=== PATIENT | female | born 1965 | race Caucasian/White ===

== ENCOUNTER 2018-07-18 16:00 | Emergency (ER) ==
[2018-07-18 18:44] VITALS: BP 151/96; TEMP 97; BMI 35.0
--- NOTE | 2018-07-18 21:19 | ED.PDOC ---
General ED Provider: Dr. KARLIE LY-ER Chief Complaint: Abdominal Pain Stated Complaint: i raised up further than i should have aNd felt pain in my chest wall Time Seen by Physician: 19:00 Mode of Arrival: Walk-In Information Source: Patient Exam Limitations: No limitations Nursing and Triage Documentation Reviewed and Agree: Yes Does patient meet sepsis criteria?: No System Inflammatory Response Syndrome: Not Applicable Sepsis Protocol: For patient's 13 years and over: Temp is 96.8 and below OR 101 and greater Pulse >90 BPM Resp >20/minute Acutely Altered Mental Status Are patient's symptoms suggestive of a new infection, such as: -Pneumonia -Skin, Soft Tissue -Endocarditis -UTI -Bone, Joint Infection -Implantable Device -Acute Abdominal Infection -Wound Infection -Meningitis -Blood Stream Catheter Infection -Unknown Miscellaneous Complaint Exam - Complex/Multi-System Complaint/Exam Onset/Duration: today Symptoms Are: Still present Initial Severity: Mild Current Severity: Mild Location of Pain: right lateral chest wall Associated Signs and Symptoms: Denies: Decreased responsiveness, Confusion, Agitation, Dizziness, Weakness, Syncope, Headache, Short of air, Cough, Wheezing , Hemoptysis, Chest pain, Palpitations, Edema, Nausea, Vomiting, Diarrhea, Abdominal pain, Back pain, Dysuria, Hematemesis, Melena, Decreased oral intake, Fever, Diaphoresis, Immunocompromised, Anticoagulation Therapy, Recent medication changes, Indwelling senior medical transcriptionist, Prior MRSA, Prior VRE, Recent trauma, Remote trauma Recent Echo/LV Function: No JVD Present: No Tachypnea Present: No Stridor Present: No Abdominal Findings: Present: Normal findings Glascow Coma Scale (see protocol): 15 Meningeal Signs Positive: No Focal Weakness: Present: None Gait: Normal Gag Reflex Present: Yes Babinski Sign: Negative Right, Negative Left Skin Findings: Present: Normal findings Joint Swelling Present: No In-Dwelling Device Present: No Quality Indicator For Non-Traumatic Chest Pain/Syncope: EKG Performed Review of Systems - Review Of Systems Constitutional: Reports: No symptoms Eyes: Reports: No symptoms Ears, Nose, Mouth, Throat: Reports: No symptoms Respiratory: Reports: No symptoms Cardiac: Reports: Chest pain GI: Reports: No symptoms : Reports: No symptoms Musculoskeletal: Reports: No symptoms Skin: Reports: No symptoms Neurological: Reports: No symptoms Endocrine: Reports: No symptoms Hematologic/Lymphatic: Reports: No symptoms All Other Systems: Reviewed and Negative Past Medical History - Past Medical History Previously Healthy: No Endocrine: Reports: Unknown Cardiovascular: Reports: Unknown Respiratory: Reports: Unknown Hematological: Reports: Unknown Gastrointestinal: Reports: Unknown Genitourinary: Reports: Unknown Neuro/Psych: Reports: Unknown Musculoskeletal: Reports: Unknown Cancer: Reports: Unknown Last Menstrual Period: unknown - Surgical History General Surgical History: Reports: Unknown - Family History Family History: Reports: Unknown - Social History Smoking Status: Never smoker Hx Substance Use: No Alcohol Screening: None Physical Exam - Physical Exam Appearance: Well-appearing Pain Distress: Mild Eyes: CRISTIN, EOMI, Conjunctiva clear ENT: Ears normal, Nose normal, Oropharynx normal Neck: Supple Respiratory: Airway patent, Breath sounds clear, Breath sounds equal, Respirations nonlabored Cardiovascular: RRR, Pulses normal, No rub, No murmur GI/: Soft Musculoskeletal: Limited ROM Skin: Warm, Dry, Normal color Neurological: Sensation intact, Motor intact, Reflexes intact, Cranial nerves intact, Alert, Oriented Psychiatric: Affect appropriate, Mood appropriate Interpretation - Radiology Interpretation Radiology Interpretation By: Radiologist Radiology Results: Positive - EKG Interpretation Time of EKG #1: 21:57 Rate: Normal Rhythm: Sinus Ectopy: None Freeman: NL ST Segment: Normal Interpretation: nsr Re-Evaluation - Re-Evaluation Time of Re-Evaluation: 21:57 Status: Improved Vital Signs Stable: Yes Pain Level: 1 Appearance: NAD Lungs: Clear Skin: Warm and Dry Neuro: Alert and Oriented X3 CV: RRR Critical Care Note - Critical Care Note Total Time (mins): 0 Course - Course Hematology/Chemistry: 07/18/18 20:35 07/18/18 20:35 Orders, Labs, Meds: Lab Review 07/18/18 07/18/18 07/18/18 20:35 20:35 20:35 WBC 5.15 RBC 4.39 Hgb 11.7 L Hct 35.8 L MCV 81.5 MCH 26.7 L MCHC 32.7 RDW Coeff of Oliverio 13.6 Plt Count 199 Immature Gran % (Auto) 0.2 Neut % (Auto) 70.8 Lymph % (Auto) 16.5 Webster % (Auto) 7.6 Eos % (Auto) 3.7 Baso % (Auto) 1.2 Immature Gran # (Auto) 0.0 Neut # (Auto) 3.7 Lymph # (Auto) 0.9 Webster # (Auto) 0.4 Eos # (Auto) 0.2 Baso # (Auto) 0.1 D-Dimer (Manual) 573.87 Sodium 135.4 L Potassium 4.09 Chloride 102.9 Carbon Dioxide 28.7 Anion Gap 7.89 BUN 12.8 Creatinine 0.84 Estimated GFR (MDRD) 71.00 BUN/Creatinine Ratio 15.23 Glucose 117.0 H Calcium 9.60 Total Bilirubin 0.39 AST 41.2 H ALT 41.9 H Alkaline Phosphatase 130.3 H Total Creatine Kinase 32.6 Troponin I < 0.012 Total Protein 7.76 Albumin 4.27 Globulin 3.49 Albumin/Globulin Ratio 1.22 Amylase 57.6 Lipase 24.3 Orders Category Date Time Status EKG-(ED ONLY) Stat CARDIO 07/18/18 20:27 Completed AMYLASE Stat LAB 07/18/18 20:35 Completed CBC W/ AUTO DIFF Stat LAB 07/18/18 20:35 Completed COMPREHENSIVE METABOLIC PANEL Stat LAB 07/18/18 20:35 Completed CREATINE KINASE Stat LAB 07/18/18 20:35 Completed D-DIMER Stat LAB 07/18/18 20:35 Completed LIPASE Stat LAB 07/18/18 20:35 Completed TROPONIN I Stat LAB 07/18/18 20:[address] ABDOMEN/PELVIS WO CONTRAST Stat RADS 07/18/18 20:[address] CHEST W/O CONTRAST Stat RADS 07/18/18 20:27 Completed Vital Signs: Temp Pulse Resp BP Pulse Ox 07/18/18 18:29 97.0 F L 101 H 20 151/96 H 98 Departure - Departure Time of Disposition: 21:57 Disposition: HOME SELF-CARE Discharge Problem: Chest wall pain Instructions: Chest Wall Pain (ED) Condition: Good Pt referred to PMD for follow-up: Yes IPMP verified?: No Additional Instructions: take your pain meds at [facility]--f/u with pcp abnormal labs Allergies/Adverse Reactions: Allergies cefixime [From Suprax] Adverse Reaction (Verified 07/18/18 19:18) clarithromycin [From Biaxin] Adverse Reaction (Verified 07/18/18 19:18) cortisone Adverse Reaction (Verified 07/18/18 19:18) erythromycin base [From E-Mycin] Adverse Reaction (Verified 07/18/18 19:18) iodine Adverse Reaction (Verified 07/18/18 19:18) Sulfa (Sulfonamide Antibiotics) Adverse Reaction (Verified 07/18/18 19:18) Home Medications: Ambulatory Orders Cyclobenzaprine HCl [Flexeril] 5 mg PO TID 07/18/18 Duloxetine HCl [Cymbalta] 60 mg PO DAILY 07/18/18 Fentanyl 12 Mcg/Hr [Duragesic 12 Mcg/Hr] 1 patch TD Q72HR 07/18/18 Gabapentin [Neurontin] 300 mg PO TID 07/18/18 Ivabradine HCl [Corlanor] 5 mg PO BID 07/18/18 Meloxicam [Mobic] 7.5 mg PO DAILY 07/18/18 Tramadol HCl [Ultram] 100 mg PO Q6H PRN 07/18/18 Disposition Discussed With: Patient, Family
--- NOTE | 2018-07-18 21:46 | CT ---
EXAM: CT chest without intravenous contrast 07/18/2018. Sagittal and coronal reformatted images obt ained HISTORY: Right chest wall pain COMPARISON: None. FINDINGS: The heart size appears within normal limits. No pericardial effusion. Ojscjibu-yj-uvrof hiatal hernia. Left chest port appears well positioned. Multifocal atelectasis. Patchy ground-glass within the posterior aspect of left lung. This is best seen on image 18. This could represent pulmonary contusion. There is no pleural effusion or pneumothorax. Edema is present along the right anterior chest wall. No underlying rib fracture identified. Surgic al clips of the right axilla. No acute fracture identified. IMPRESSION: 1. Multifocal atelectasis with possible pulmonary contusion. 2. Kqleaydi-dr-auptm hiatal hernia. 3. Left chest port well positioned. 4. Edema along the right anterior chest wall. No underlying fracture identified.
--- NOTE | 2018-07-18 21:53 | CT ---
EXAM: CT abdomen pelvis without contrast HISTORY: Right upper quadrant pain COMPARISON: None TECHNIQUE: CT abdomen pelvis performed without intravenous contrast. Coronal and sagittal reformatt ed images obtained. FINDINGS: Please refer to separate port CT chest regarding findings in the lower chest. No free air . No acute abnormalities of the bones. Spinal stimulator. Degenerative change in the spine. Evalu ation organ parenchyma limited without contrast. Liver with granulomatous calcification otherwise un remarkable. Patient status post cholecystectomy. Pancreas with fatty atrophy. Granulomatous calcif ication in the spleen. Spleen otherwise unremarkable. Adrenals unremarkable. No hydronephrosis or nephrolithiasis. No calculi visualized in normal course of the ureters. Bladder unremarkable. Uter us unremarkable. Aorta normal in caliber. There is posterior subcutaneous edema. Moderate hiatal h ernia. No dilated loops small bowel. There is prominent caliber of the appendix at 9 mm without ass ociated inflammation. There is a small fat containing supraumbilical hernia. There is a small fat- containing periumbilical hernia. No inflammatory stranding identified in the abdomen pelvis. IMPRESSION: 1. Prominent caliber of the appendix without associated inflammation. A negative exam for appendici tis is favored. Recommend clinical correlation and follow-up as warranted. 2. Moderate hiatal hernia 3. Areas of increased submucosal fat deposition in the colon, a finding be seen in sequela of remote infection or inflammation. 4. Status post cholecystectomy
== END 2018-07-18 22:05 | disposition home or self-care (01) ==
LOC: ED 18:24
DX: R07.89 Other chest pain (principal); R10.9 Unspecified abdominal pain; Z79.899 Other long term (current) drug therapy
CPT/HCPCS: 36415; 80053; 82150; 82550; 83690; 84484; 85025; 85379; 93005; 93010; 99283

== ENCOUNTER 2018-10-23 10:50 | Outpatient (CLI) ==
[2018-08-25 07:47] VITALS: BMI 35.0
== END 2018-10-23 10:51 | disposition home or self-care (01) ==
LOC: RHC-LAB 10:50 → FCC-LAB 10:51
PROVIDERS: ATTEND Family Medicine
DX: B35.1 Tinea unguium (principal); N64.59 Other signs and symptoms in breast
CPT/HCPCS: 87101

== ENCOUNTER 2018-10-23 11:02 | Outpatient (CLI) ==
[2018-08-25 07:47] VITALS: BMI 35.0
--- NOTE | 2018-10-23 12:21 | US ---
EXAM: Ultrasound chest wall HISTORY: Palpable area along mastectomy scar for 2 days. FINDINGS: Webb-scale ultrasound and color Doppler imaging was performed in the region of interest de scribed as the right chest wall. Images demonstrated a deep subcutaneous irregular fluid collection located in the general region of t he right axillary tail. This was measured at 3.5 x 1.1 x 4.3 cm. The fluid appears anechoic (simple ) and may represent edema although an early abscess cannot be excluded. If indicated, consider corre lation with enhanced CT. IMPRESSION: 1. Fluid collection found in the region of interest.
== END 2018-10-23 11:03 | disposition home or self-care (01) ==
LOC: RAD 11:02
PROVIDERS: ATTEND Family Medicine
DX: N64.59 Other signs and symptoms in breast (principal)

== ENCOUNTER 2018-11-04 07:34 | Outpatient (CLI) ==
[2018-08-25 07:47] VITALS: BMI 35.0
--- NOTE | 2018-11-04 09:48 | CT ---
Exam: CT chest with intravenous contrast. Comparison: CT performed 07/18/2018. Reason for exam: Abnormal findings on diagnostic exam. FINDINGS: Left-sided Port-A-Cath appears unchanged. 4 mm nodular density in the left apex on axial image number 18. The previously described patchy airs pace opacities in left upper lobe have significantly decreased on today's exam with minimal residual seen on imaging. Similar appearing pleural thickening in the left upper lobe. The mild pleural thic kening/inflammation in the right middle lobe. Patchy airspace opacities are seen in the right lower lobe that are not seen on previous imaging. There is a moderately-sized hiatal hernia. The heart is not enlarged. The aorta is normal in course and caliber. The gallbladder has been removed. There is a small only fat containing ventral hernia as seen on axial image number 62. No suspicious appearing osteoblastic or osteolytic lesions. Impression: 1. Patchy airspace opacities are seen in the left upper and right lower lobes likely inflammation or atypical infection. 2. Scarring changes/minimal pleural based nodularity in the left apex on axial image number 18. 6-m onth follow-up is recommended to document stability / resolution. 3. Pleural thickening in the left apex and right lower lobe likely inflammatory/infectious. Recomme nd attention this region on follow up imaging. 4. Moderately sized hiatal hernia. 5. Fat containing ventral hernia
== END 2018-11-04 07:35 | disposition home or self-care (01) ==
LOC: RAD 07:34
PROVIDERS: ATTEND Family Medicine
DX: R93.89 Abnormal findings on diagnostic imaging of other specified body structures (principal); N64.9 Disorder of breast, unspecified
CPT/HCPCS: 36415; 82565

== ENCOUNTER 2018-12-05 13:45 | Emergency (ER) ==
[2018-12-05 13:54] VITALS: BP 134/84; TEMP 97.6; BMI 34.8
--- NOTE | 2018-12-05 14:21 | ED.PDOC ---
General ED Provider: Dr. LISA PAULINO Chief Complaint: Wound Check Stated Complaint: WOUND CHECK IN A 53 YEARS OLD FEMALE REPORTED OF HER SUTURE COMING OFF LAST NIGHT . SEE PHOTOS Time Seen by Physician: 14:00 (CHRISTINA PRESENT AT ALL TIME . SEE PHOTOS) Mode of Arrival: Walk-In Information Source: Patient Primary Care Provider: SEGUN HOOK Referred to ED by: Other (PROCEDURE WAS FOR A SEABOUS CYST RESECTION , RIGHT SIDE ) Nursing and Triage Documentation Reviewed and Agree: Yes (STATED SHE CAN TAKE KEFLEX ) Does patient meet sepsis criteria?: No System Inflammatory Response Syndrome: Not Applicable (SEE PHOTOS ( R.N. PRESENT AT ALL TIMES)) Sepsis Protocol: For patient's 13 years and over: Temp is 96.8 and below OR 101 and greater Pulse >90 BPM Resp >20/minute Acutely Altered Mental Status Are patient's symptoms suggestive of a new infection, such as: -Pneumonia -Skin, Soft Tissue -Endocarditis -UTI -Bone, Joint Infection -Implantable Device -Acute Abdominal Infection -Wound Infection -Meningitis -Blood Stream Catheter Infection -Unknown Review of Systems - Review Of Systems Constitutional: Reports: No symptoms Eyes: Reports: No symptoms Ears, Nose, Mouth, Throat: Reports: No symptoms Respiratory: Reports: No symptoms Cardiac: Reports: No symptoms GI: Reports: No symptoms : Reports: No symptoms Musculoskeletal: Reports: No symptoms Skin: Reports: Other (WOUND SE NOTED IN THE PHOTOS) Neurological: Reports: No symptoms Endocrine: Reports: No symptoms Hematologic/Lymphatic: Reports: No symptoms All Other Systems: Reviewed and Negative Past Medical History - Past Medical History Previously Healthy: No Endocrine: Reports: Unknown Cardiovascular: Reports: Unknown Respiratory: Reports: Unknown Hematological: Reports: Unknown Gastrointestinal: Reports: Unknown Genitourinary: Reports: Unknown Neuro/Psych: Reports: Unknown Musculoskeletal: Reports: Unknown Cancer: Reports: Unknown Last Menstrual Period: N/A - Surgical History General Surgical History: Reports: Unknown - Family History Family History: Reports: Unknown - Social History Smoking Status: Never smoker Hx Substance Use: No Alcohol Screening: None - Immunizations Tetanus Shot up to Date: Yes Physical Exam - Physical Exam Appearance: Well-appearing, No pain distress, Well-nourished Eyes: CRISTIN, EOMI, Conjunctiva clear ENT: Ears normal, Nose normal, Oropharynx normal Respiratory: Airway patent, Breath sounds clear, Breath sounds equal, Respirations nonlabored Cardiovascular: RRR, Pulses normal, No rub, No murmur GI/: Soft, Nontender, No masses, Bowel sounds normal, No Organomegaly Musculoskeletal: Normal strength, ROM intact, No edema, No calf tenderness Skin: Warm, Dry (1CMX 0.5 CL WOUND RIGHT AXILLA SEE PHOTOS) Neurological: Sensation intact, Motor intact, Reflexes intact, Cranial nerves intact, Alert, Oriented Psychiatric: Affect appropriate, Mood appropriate Critical Care Note - Critical Care Note Total Time (mins): 0 Course - Course Vital Signs: Temp Pulse Resp BP Pulse Ox 12/05/18 13:46 97.6 F 117 H 20 134/84 96 Departure - Departure Time of Disposition: 14:22 Disposition: HOME SELF-CARE Discharge Problem: Wound, Wound of axillary region Instructions: Acute Wound Care (ED), Care For Your Stitches (ED), Care For Your Stitches (DC) Condition: Good Pt referred to PMD for follow-up: Yes IPMP verified?: No Additional Instructions: Please call your Family Physician as soon as possible to schedule a follow-up appointment. Allergies/Adverse Reactions: Allergies latex Allergy (Unverified 08/20/18 10:33) mold Allergy (Verified 12/05/18 13:56) pneumococcal vaccine Adverse Reaction (Intermediate, Verified 12/05/18 13:56) swelling and rash sulfamethoxazole [From Bactrim] Adverse Reaction (Mild, Verified 12/05/18 13:56) rash trimethoprim [From Bactrim] Adverse Reaction (Mild, Verified 12/05/18 13:56) rash cefixime [From Suprax] Adverse Reaction (Verified 12/05/18 13:56) clarithromycin [From Biaxin] Adverse Reaction (Verified 12/05/18 13:56) cortisone Adverse Reaction (Verified 12/05/18 13:56) erythromycin base [From E-Mycin] Adverse Reaction (Verified 12/05/18 13:56) iodine Adverse Reaction (Verified 12/05/18 13:56) Sulfa (Sulfonamide Antibiotics) Adverse Reaction (Verified 12/05/18 13:56) sulfa drugs Adverse Reaction (Mild, Uncoded 08/20/18 10:33) Rash Home Medications: Ambulatory Orders Cyclobenzaprine HCl [Flexeril] 5 mg PO TID 07/18/18 Fentanyl 12 Mcg/Hr [Duragesic 12 Mcg/Hr] 1 patch TD Q72HR 07/18/18 Gabapentin [Neurontin] 300 mg PO TID 07/18/18 Ivabradine HCl [Corlanor] 5 mg PO BID 07/18/18 Tramadol HCl [Ultram] 100 mg PO Q6H PRN 07/18/18 Letrozole 2.5 mg PO DAILY 08/20/18 Propranolol HCl 40 mg PO BID 08/20/18 Amoxicillin 500 mg PO Q6HR #30 tablet 12/05/18 Cyanocobalamin (Vitamin B-12) [Vitamin B-12] 1,000 mcg IM WEEKLY 12/05/18 Ferrous Sulfate [Iron] 325 mg PO DAILY 12/05/18 Disposition Discussed With: Patient
== END 2018-12-05 14:55 | disposition home or self-care (01) ==
LOC: ED 13:45
DX: S41.101A Unspecified open wound of right upper arm, initial encounter (principal); Z98.890 Other specified postprocedural states
CPT/HCPCS: 87070; 99282